=== PATIENT | female | born 1995 | race Caucasian/White ===

== ENCOUNTER 2020-11-18 21:38 | Emergency (ER) | payer OTHER ==
[2020-11-19] MEDS ORDERED: KETOROLAC 30 MG/ML INJ ONE (03:39)
--- NOTE | 2020-11-19 04:29 | ER ---
Nurse's Notes [facility] Name: Ashley Navarrete Age: 25 yrs Sex: Female : 1995 Arrival Date: 11/18/2020 Time: 21:45 Bed 13 Private MD: Diagnosis: Strain of muscle and tendon of front wall of thorax Presentation: 11/18 22:16 Chief complaint: Patient states: I am at [facility]. They woke me up to say my BP and ca1 pulse was high. They check our BP and pulse ever 2 hours. I also have pain under my R armpit for a week now. It hurts to cough and sneeze. Coronavirus screen: Client denies travel out of the [place] in the last 14 days. At this time, the client does not indicate any symptoms associated with coronavirus-19. Ebola Screen: Patient negative for fever greater than or equal to 101.5 degrees Fahrenheit, and additional compatible Ebola Virus Disease symptoms Patient denies exposure to infectious person. Patient denies travel to an Ebola-affected area in the 21 days before illness onset. No symptoms or risks identified at this time. Initial Sepsis Screen: Does the patient meet any 2 criteria? No. Patient's initial sepsis screen is negative. Does the patient have a suspected source of infection? No. Patient's initial sepsis screen is negative. Risk Assessment: Do you want to hurt yourself or someone else? Patient reports no desire to harm self or others. Onset of symptoms was November 18, 2020. 22:16 Method Of Arrival: Ambulatory ca1 22:16 Acuity: ZAK 3 ca1 FINANCE ATTORNEY: 22:20 LMP N/A - Depo-provera ca1 Historical: - Allergies: 22:20 No Known Allergies; ca1 - PMHx: 22:20 None; ca1 - PSHx: 22:20 None; ca1 - Immunization history:: Flu vaccine is not up to date. - Social history:: Smoking status: Patient reports the use of cigarette tobacco products, smokes one-half pack cigarettes per day, Patient uses alcohol, on a daily basis. street drugs, marijuana, Methamphetamine (Meth). Assessment: 11/19 04:03 Reassessment: Patient appears in no apparent distress at this time. Patient and/or sg family updated on plan of care and expected duration. Pain level reassessed. Patient is alert, oriented x 3, equal unlabored respirations, skin warm/dry/pink. 04:43 Reassessment: Patient appears in no apparent distress at this time. Patient and/or sg family updated on plan of care and expected duration. Pain level reassessed. Patient is alert, oriented x 3, equal unlabored respirations, skin warm/dry/pink. Patient denies pain at this time. Patient states feeling better. 04:43 Reassessment: rico contacted, left a for patient transport back to facility. sg Vital Signs: 11/18 22:16 BP 135 / 96; Pulse 110; Resp 16 S; Temp 97.5(TE); Pulse Ox 100% on R/A; Weight 54.43 kg ca1 (R); Height 5 ft. 3 in. (160.02 cm) (R); Pain 7/10; 11/19 03:20 BP 132 / 88; Pulse 90; Resp 16; Pulse Ox 100% on R/A; sg 04:23 BP 106 / 64 RA Supine (auto/reg); Pulse 103 MON; Resp 14; Temp 98.7(O); Pulse Ox 100% ds4 on R/A; Pain 2/10; 11/18 22:16 Body Mass Index 21.26 (54.43 kg, 160.02 cm) ca1 ED Course: 11/18 21:45 Patient arrived in ED. ag3 22:18 Triage completed. ca1 22:20 Arm band placed on right wrist. ca1 11/19 02:40 Callum Townsend MD is Attending Physician. tw4 02:57 Wai Frances, RN is Primary Nurse. sg 03:15 CXR XRAY In Process Unspecified. EDMS Administered Medications: 03:28 Drug: TORadol 60 mg Route: IM; Site: right ventrogluteal; sg Outcome: 04:29 Discharge ordered by . tw4 07:19 Patient left the ED. em Signatures: Dispatcher [employer] EDMS Wai Frances, RN RN Marcus Rg RN RN em Gerardo Ramirez ds4 Callum Townsend MD MD tw4 Lucy Pereyra ag3 Imani De Los Santos RN RN ca1
--- NOTE | 2020-11-19 04:29 | EDPHYS ---
Physician Documentation [facility] Name: Ashley Navarrete Age: 25 yrs Sex: Female : 1995 Arrival Date: 11/18/2020 Time: 21:45 Bed 13 Private MD: ED Physician Callum Townsend HPI: 11/19 04:25 This 25 yrs old Female presents to ER via Ambulatory with complaints of High Blood tw4 Pressure, Irregular Pulse. 04:25 The patient has elevated blood pressure and discovered this rehab. Onset: The tw4 symptoms/episode began/occurred just prior to arrival, yesterday. Modifying factors: The symptoms are aggravated by The symptoms are alleviated by. Associated signs and symptoms: The patient has no apparent associated signs or symptoms. The patient has not experienced similar symptoms in the past. MANAGER TRANSPORT: 11/18 22:20 LMP N/A - Depo-provera ca1 Historical: - Allergies: 22:20 No Known Allergies; ca1 - PMHx: 22:20 None; ca1 - PSHx: 22:20 None; ca1 - Immunization history:: Flu vaccine is not up to date. - Social history:: Smoking status: Patient reports the use of cigarette tobacco products, smokes one-half pack cigarettes per day, Patient uses alcohol, on a daily basis. street drugs, marijuana, Methamphetamine (Meth). ROS: 11/19 04:25 Constitutional: Negative for fever, chills, and weight loss, Eyes: Negative for injury, tw4 pain, redness, and discharge, Respiratory: Negative for shortness of breath, cough, wheezing, and pleuritic chest pain, Abdomen/GI: Negative for abdominal pain, nausea, vomiting, diarrhea, and constipation, Back: Negative for injury and pain, MS/Extremity: Negative for injury and deformity, Skin: Negative for injury, rash, and discoloration, Neuro: Negative for headache, weakness, numbness, tingling, and seizure. Cardiovascular: Positive for chest pain, with cough, with movement, Negative for edema, orthopnea, palpitations. Exam: 04:25 Constitutional: This is a well developed, well nourished patient who is awake, alert, tw4 and in no acute distress. Head/Face: Normocephalic, atraumatic. Chest/axilla: Normal chest wall appearance and motion. Nontender with no deformity. No lesions are appreciated. Cardiovascular: Regular rate and rhythm with a normal S1 and S2. No gallops, murmurs, or rubs. Normal PMI, no JVD. No pulse deficits. Respiratory: Lungs have equal breath sounds bilaterally, clear to auscultation and percussion. No rales, rhonchi or wheezes noted. No increased work of breathing, no retractions or nasal flaring. Abdomen/GI: Soft, non-tender, with normal bowel sounds. No distension or tympany. No guarding or rebound. No evidence of tenderness throughout. Back: No spinal tenderness. No costovertebral tenderness. Full range of motion. MS/ Extremity: Pulses equal, no cyanosis. Neurovascular intact. Full, normal range of motion. Neuro: Awake and alert, GCS 15, oriented to person, place, time, and situation. Cranial nerves II-XII grossly intact. Motor strength 5/5 in all extremities. Sensory grossly intact. Cerebellar exam normal. Normal gait. 04:27 Chest/axilla: Inspection: normal, Palpation: tenderness, that is moderate, of the tw4 right lateral posterior chest and right lateral anterior chest, that totally reproduces the patient's complaints. Vital Signs: 11/18 22:16 BP 135 / 96; Pulse 110; Resp 16 S; Temp 97.5(TE); Pulse Ox 100% on R/A; Weight 54.43 kg ca1 (R); Height 5 ft. 3 in. (160.02 cm) (R); Pain 7/10; 11/19 03:20 BP 132 / 88; Pulse 90; Resp 16; Pulse Ox 100% on R/A; sg 04:23 BP 106 / 64 RA Supine (auto/reg); Pulse 103 MON; Resp 14; Temp 98.7(O); Pulse Ox 100% ds4 on R/A; Pain 2/10; 11/18 22:16 Body Mass Index 21.26 (54.43 kg, 160.02 cm) ca1 MDM: 04:25 Differential diagnosis: hypertensive crisis, Malignant HTN. Data reviewed: vital signs, tw4 nurses notes. Data interpreted: Pulse oximetry: Interpretation: normal. Counseling: I had a detailed discussion with the patient and/or guardian regarding: the historical points, exam findings, and any diagnostic results supporting the discharge/admit diagnosis. Admission orders: after a detailed discussion of the patient's condition and case, the admit orders are written by me. 04:29 Patient medically screened. tw4 11/19 02:56 Order name: CXR XRAY tw4 11/18 22:20 Order name: EKG; Complete Time: 23:48 ca1 11/18 22:20 Order name: EKG - Nurse/Tech; Complete Time: 22:28 ca1 EC:27 Rate is 99 beats/min. Rhythm is regular. QRS [place] is Normal. [place] interval is normal. QRS tw4 interval is normal. QT interval is normal. No Q waves. T waves are Normal. No ST changes noted. Clinical impression: Normal ECG. Interpreted by me. Reviewed by me. Administered Medications: : Drug: TORadol 60 mg Route: IM; Site: right ventrogluteal; sg Disposition: 11/19/20 04:29 Discharged to Home. Impression: Strain of muscle and tendon of front wall of thorax. - Condition is Stable. - Discharge Instructions: Chest Wall Pain, Hypertension. - Medication Reconciliation Form, Thank You Letter, Antibiotic Education, Prescription Opioid Use form. - Follow up: Private Physician; When: Upon discharge from the Emergency Department; Reason: Recheck today's complaints, Continuance of care, Re-evaluation by your physician. - Problem is new. - Symptoms have improved. Signatures: Dispatcher [employer] Wai Cosby RN RN Marcus Rg RN RN em Wadley, Terrence, MD MD tw4 Imani De Los Santos RN RN ca1 Corrections: (The following items were deleted from the chart) 07:19 04:29 11/19/2020 04:29 Discharged to Home. Impression: Strain of muscle and tendon of em front wall of thorax. Condition is Stable. Forms are Medication Reconciliation Form, Thank You Letter, Antibiotic Education, Prescription Opioid Use. Follow up: Private Physician; When: Upon discharge from the Emergency Department; Reason: Recheck today's complaints, Continuance of care, Re-evaluation by your physician. Problem is new. Symptoms have improved. tw4
[2020-11-19 07:24] VITALS: O2SAT 100
[2020-11-19 07:26] VITALS: BP 106/64; TEMP 98.7
--- NOTE | 2020-11-19 07:50 | RAD REPORT ---
EXAM DESCRIPTION: Izzy Single View11/19/2020 3:16 am CLINICAL HISTORY: Chest pain COMPARISON: none FINDINGS: The lungs appear clear of acute infiltrate. The heart is normal size IMPRESSION: No acute abnormalities displayed
--- NOTE | 2020-11-20 04:34 | EKG ---
Test Date: 2020-11-18 Test Time: 21:23:56 Lug Loader: ALEXANDER MEASUREMENT RESULTS: Intervals: Rate: 99 CA: 134 QRSD: 80 QT: 334 QTc: 428 [place]: P: 82 CA: 134 QRS: 86 T: 71 INTERPRETIVE STATEMENTS: Normal sinus rhythm Normal ECG No previous ECG available for comparison Electronically Signed On 11-20-20 04:32:26 CDT by Kaiden Andrews
== END 2020-11-19 07:19 | disposition home or self-care (01) ==
LOC: ER 21:38
DX: S29.011A Strain of muscle and tendon of front wall of thorax, initial encounter (principal); F17.210 Nicotine dependence, cigarettes, uncomplicated
CPT/HCPCS: 71045; 93005; 96372; 99283

== ENCOUNTER 2020-11-21 11:24 | Emergency (ER) | payer OTHER ==
--- NOTE | 2020-11-21 13:12 | EDPHYS ---
Physician Documentation [facility] Name: Ashley Navarrete Age: 25 yrs Sex: Female : 1995 Arrival Date: 11/21/2020 Time: 11:25 Bed 15 Private MD: ED Physician Callum Townsend HPI: 11/21 12:39 This 25 yrs old Female presents to ER via Ambulatory with complaints of rib pain. tw4 12:39 The patient or guardian reports chest pain that is located primarily in the anterior tw4 chest wall, right. The pain does not radiate. Associated signs and symptoms: The patient has no apparent associated signs or symptoms. The chest pain is described as sharp. Severity of pain: At its worst the pain was mild in the emergency department the pain is unchanged. The patient has been recently seen at the [facility] Emergency Department, this week. Historical: - Allergies: 11:37 No Known Allergies; ss - PMHx: 11:37 Bipolar disorder; ss - PSHx: 11:37 None; ss - Immunization history:: Adult Immunizations unknown. - Social history:: Smoking status: Patient reports the use of cigarette tobacco products, smokes one-half pack cigarettes per day, Patient uses Meth, last use was a week ago. Is in rehab at [facility]. ROS: 12:39 Constitutional: Negative for fever, chills, and weight loss, Eyes: Negative for injury, tw4 pain, redness, and discharge, Respiratory: Negative for shortness of breath, cough, wheezing, and pleuritic chest pain, Abdomen/GI: Negative for abdominal pain, nausea, vomiting, diarrhea, and constipation, Back: Negative for injury and pain, MS/Extremity: Negative for injury and deformity, Skin: Negative for injury, rash, and discoloration, Neuro: Negative for headache, weakness, numbness, tingling, and seizure. 12:39 Cardiovascular: Positive for chest pain, Negative for edema, orthopnea, palpitations, paroxysmal nocturnal dyspnea. Exam: 12:39 Constitutional: This is a well developed, well nourished patient who is awake, alert, tw4 and in no acute distress. Head/Face: Normocephalic, atraumatic. 12:39 Cardiovascular: Regular rate and rhythm with a normal S1 and S2. No gallops, murmurs, or rubs. Normal PMI, no JVD. No pulse deficits. Respiratory: Lungs have equal breath sounds bilaterally, clear to auscultation and percussion. No rales, rhonchi or wheezes noted. No increased work of breathing, no retractions or nasal flaring. Abdomen/GI: Soft, non-tender, with normal bowel sounds. No distension or tympany. No guarding or rebound. No evidence of tenderness throughout. Back: No spinal tenderness. No costovertebral tenderness. Full range of motion. MS/ Extremity: Pulses equal, no cyanosis. Neurovascular intact. Full, normal range of motion. Neuro: Awake and alert, GCS 15, oriented to person, place, time, and situation. Cranial nerves II-XII grossly intact. Motor strength 5/5 in all extremities. Sensory grossly intact. Cerebellar exam normal. Normal gait. 12:39 Chest/axilla: Inspection: normal, Palpation: tenderness, that is mild, of the right lateral posterior chest, that totally reproduces the patient's complaints. Vital Signs: 11:34 BP 123 / 88; Pulse 103; Resp 17; Temp 98.5; Pulse Ox 99% on R/A; Weight 57.15 kg; ss Height 5 ft. 3 in. (160.02 cm); Pain 8/10; 11:34 Body Mass Index 22.32 (57.15 kg, 160.02 cm) ss MDM: 12:34 Patient medically screened. tw4 12:39 Differential diagnosis: costochondritis. Data reviewed: vital signs, nurses notes. tw4 Medical screen evaluation completed. EMTALA emergency medical condition absent. 13:10 Counseling: I had a detailed discussion with the patient and/or guardian regarding: the tw4 historical points, exam findings, and any diagnostic results supporting the discharge/admit diagnosis, the need for outpatient follow up. Special discussion: Based on the patient's history, exam, and Dx evaluation, there is no indication for emergent intervention or inpatient Tx. It is understood by the patient/guardian that if the Sx's persist or worsen they need to return immediately for re-evaluation. I discussed with the patient/guardian in detail that at this point there is no indication for admission to the hospital. It is understood, however, that if the symptoms persist or worsen the patient needs to return immediately for re-evaluation. Administered Medications: No medications were administered Disposition: 11/21/20 13:11 Discharged to Home. Impression: costochondritis, Possible STI exposure. - Condition is Stable. - Discharge Instructions: Chest Wall Pain. - Medication Reconciliation Form, Thank You Letter, Antibiotic Education, Prescription Opioid Use form. - Follow up: Private Physician; When: Upon discharge from the Emergency Department; Reason: Recheck today's complaints, Continuance of care, Re-evaluation by your physician. - Problem is an ongoing problem. - Symptoms are unchanged. Signatures: Augusta Chandra, RN RN Callum Hoang MD MD tw4 Yojana Cheatham Corrections: (The following items were deleted from the chart) 13:15 13:11 11/21/2020 13:11 Discharged to Home. Impression: costochondritis; Possible STI eb exposure. Condition is Stable. Forms are Medication Reconciliation Form, Thank You Letter, Antibiotic Education, Prescription Opioid Use. Follow up: Private Physician; When: Upon discharge from the Emergency Department; Reason: Recheck today's complaints, Continuance of care, Re-evaluation by your physician. Problem is an ongoing problem. Symptoms are unchanged. tw4
--- NOTE | 2020-11-21 13:12 | ER ---
Nurse's Notes [facility] Name: Ashley Navarrete Age: 25 yrs Sex: Female : 1995 Arrival Date: 11/21/2020 Time: 11:25 Bed 15 Private MD: Diagnosis: costochondritis;Possible STI exposure Presentation: 11/21 11:34 Chief complaint: Patient states: R lateral chest wall pain that began 1 week ago. Pt ss reports she was seen for the same symptoms less than a week ago and given shot which helped, but the pain came back the next day. Coronavirus screen: Client denies travel out of the [place] in the last 14 days. Ebola Screen: Patient denies exposure to infectious person. Patient denies travel to an Ebola-affected area in the 21 days before illness onset. Initial Sepsis Screen: Does the patient meet any 2 criteria? No. Patient's initial sepsis screen is negative. Does the patient have a suspected source of infection? No. Patient's initial sepsis screen is negative. Risk Assessment: Do you want to hurt yourself or someone else? Patient reports no desire to harm self or others. Onset of symptoms was November 14, 2020. 11:34 Method Of Arrival: Ambulatory 11:34 Acuity: ZAK 4 ss Historical: - Allergies: 11:37 No Known Allergies; ss - PMHx: 11:37 Bipolar disorder; ss - PSHx: 11:37 None; ss - Immunization history:: Adult Immunizations unknown. - Social history:: Smoking status: Patient reports the use of cigarette tobacco products, smokes one-half pack cigarettes per day, Patient uses Meth, last use was a week ago. Is in rehab at [facility]. Assessment: 11:25 Reassessment: Called to triage. Patient is making phone call and would like to wait to ss go to triage. Vital Signs: 11:34 BP 123 / 88; Pulse 103; Resp 17; Temp 98.5; Pulse Ox 99% on R/A; Weight 57.15 kg; ss Height 5 ft. 3 in. (160.02 cm); Pain 8/10; 11:34 Body Mass Index 22.32 (57.15 kg, 160.02 cm) ED Course: 11:25 Patient arrived in ED. am2 11:36 Triage completed. ss 11:37 Arm band placed on. 11:43 Carrillo Gonzáles, RN is Primary Nurse. jl7 12:05 Callum Townsend MD is Attending Physician. tw4 Administered Medications: No medications were administered Outcome: 13:11 Discharge ordered by . tw4 13:15 Patient left the ED. eb Signatures: Augusta Chandra RN RN Carrillo Gonzáles, HERMINIA RN jl7 Hilaria Parada [facility] Callum Townsend MD MD tw4 Yojana Cheatham eb
[2020-11-21 13:20] VITALS: BP 123/88; TEMP 98.5; O2SAT 99
== END 2020-11-21 13:15 | disposition home or self-care (01) ==
LOC: ER 11:24
DX: M94.0 Chondrocostal junction syndrome [Tietze] (principal); F17.210 Nicotine dependence, cigarettes, uncomplicated
CPT/HCPCS: 99281